=== PATIENT | male | born 1955 | race Caucasian/White ===

== ENCOUNTER 2021-07-04 17:20 | Observation (INO) | payer BC, OTHER ==
[2021-07-04] MEDS ORDERED: Morphine 4 MG/ML VIAL ONE ×2 (17:51→18:26)
[2021-07-04] MEDS ORDERED: Ondansetron PF 4 MG/2 ML Vial ONE (17:52)
[2021-07-04 17:53] LABS: #Eosinphils 0.2 10x3/uL (0.0-0.5); #Monocytes 0.7 10x3/uL (0.0-1.1); #Neutrophils 4.6 10x3/uL (1.5-8.4); %Basophils 0.4 % (0.0-2.0); %Eosinophils 1.9 % (0.0-6.0); %Lymphocytes 36.1 % (18.0-47.0); %Monocytes 7.7 % (0.0-10.0); %Neutrophils 53.7 % (40.0-75.0); Hemoglobin 14.4 g/dL (13.5-17.5); Mean Corpuscular HGB CONC 32.7 g/dL (32.0-36.0); Mean Corpuscular Hemoglobin 28.9 pg (27.0-33.0); Mean Corpuscular Volume 88.4 fl (81.2-95.1); Mean Platelet Volume 10.2 fl (7.4-10.4); Platelet Count 232 10x3/uL (150-450); RBC Distribution Width 13.3 % (11.5-14.5); Red Blood Cell (RBC) Count 4.98 10x6/uL (4.32-5.72); White Blood Cell (WBC) Count 8.5 10x3/uL (3.5-10.5)
[2021-07-04 18:08] LABS: ALT (SGPT) 21 U/L (8-55); AST (SGOT) 21 U/L (5-34); Albumin 4.6 g/dL (3.4-4.8); Alkaline Phosphatase 66 U/L (40-110); Anion Gap 16 mmol/L (10-20); BUN (Urea Nitrogen) 18 mg/dL (8.4-25.7); Bilirubin, Total 0.4 mg/dL (0.2-1.2); Calc. Creatinine Clearance 0 mL/min (70-130); Calcium 9.6 mg/dL (7.8-10.44); Carbon Dioxide 24 mmol/L (23-31); Chloride 103 mmol/L (98-107); Globulin 2.9 g/dL (2.4-3.5); Glucose 103 mg/dL (80-115); Lipase 19 U/L (8-78); Potassium 4.2 mmol/L (3.5-5.1); Protein, Total 7.5 g/dL (5.8-8.1); Sodium 139 mmol/L (136-145)
[2021-07-04 18:26] LABS: PTT 25.1 sec (22.0-33.0); Prothrombin Time 10.6 sec (9.5-12.1)
[2021-07-04 19:06] LABS: ALT (SGPT) 18 U/L (8-55); AST (SGOT) 20 U/L (5-34); Albumin 3.9 g/dL (3.4-4.8); Alkaline Phosphatase 55 U/L (40-110); Bilirubin, Direct 0.2 mg/dL (0.1-0.3); Bilirubin, Total 0.4 mg/dL (0.2-1.2); Protein, Total 6.6 g/dL (5.8-8.1)
[2021-07-04 22:03] LABS: Troponin I Less than 0.010 ng/mL (< 0.028)
[2021-07-04 22:17] VITALS: BMI 40.4
[2021-07-04] MEDS ORDERED: Ondansetron PF 4 MG/2 ML Vial IVP PRN (22:17)
[2021-07-04] MEDS ORDERED: Morphine 4 MG/ML VIAL SLOW IVP PRN (22:17)
[2021-07-04] MEDS ORDERED: Enoxaparin Sodium 40 MG/0.4 ML SYRINGE SC SCH (22:30)
[2021-07-04] MEDS ORDERED: Sodium Chloride 0.45% 1,000 ML ONE (22:34)
[2021-07-04] MEDS: Morphine 4 MG/ML VIAL SLOW IVP PRN (22:37)
[2021-07-04] MEDS: Sodium Chloride 0.45% 1,000 ML IV SCH (22:38)
[2021-07-04 23:06] LABS: Magnesium 1.7 mg/dL (1.6-2.6)
[2021-07-04] MEDS ORDERED: Gabapentin 300 MG CAP PO SCH (23:30)
[2021-07-04] MEDS ORDERED: Atorvastatin Calcium 10 MG TAB PO SCH (23:30)
[2021-07-04] MEDS: Clindamycin/D5W 600 MG in Premix Bag 1 BAG IVPB SCH (23:37)
[2021-07-05 04:14] LABS: #Eosinphils 0.1 10x3/uL (0.0-0.5); #Monocytes 0.7 10x3/uL (0.0-1.1); #Neutrophils 6.9 10x3/uL (1.5-8.4); %Basophils 0.3 % (0.0-2.0); %Lymphocytes 16.8 % (18.0-47.0); %Neutrophils 74.5 % (40.0-75.0); Hemoglobin 13.3 g/dL (13.5-17.5); Mean Corpuscular HGB CONC 32.9 g/dL (32.0-36.0); Mean Corpuscular Hemoglobin 29.4 pg (27.0-33.0); Mean Corpuscular Volume 89.2 fl (81.2-95.1); Mean Platelet Volume 9.9 fl (7.4-10.4); Platelet Count 212 10x3/uL (150-450); RBC Distribution Width 13.7 % (11.5-14.5); Red Blood Cell (RBC) Count 4.53 10x6/uL (4.32-5.72); White Blood Cell (WBC) Count 9.2 10x3/uL (3.5-10.5)
[2021-07-05 04:40] LABS: Anion Gap 16 mmol/L (10-20); BUN (Urea Nitrogen) 15 mg/dL (8.4-25.7); Calc. Creatinine Clearance 129 mL/min (70-130); Calcium 8.7 mg/dL (7.8-10.44); Carbon Dioxide 20 mmol/L (23-31); Chloride 105 mmol/L (98-107); Glucose 125 mg/dL (80-115); Sodium 136 mmol/L (136-145)
[2021-07-05 04:52] LABS: Potassium 4.6 mmol/L (3.5-5.1)
[2021-07-05] MEDS ORDERED: Promethazine HCl 12.5 MG in Sodium Chloride 0.9% 50 ML IVPB SCH (05:00)
[2021-07-05] MEDS: Morphine 4 MG/ML VIAL SLOW IVP PRN (05:21)
[2021-07-05] MEDS: Clindamycin/D5W 600 MG in Premix Bag 1 BAG IVPB SCH ×2 (06:23→13:56)
[2021-07-05] MEDS: Sodium Chloride 0.45% 1,000 ML IV SCH ×3 (06:24→22:57)
[2021-07-05] MEDS ORDERED: Bupivacaine 0.25% HCL 30 ML VIAL ONE (07:10)
[2021-07-05] MEDS ORDERED: EPINEPHrine 1 MG/ML AMP ONE (07:11)
[2021-07-05 07:19] LABS: SARS-CoV-2 NAA Rapid Test Not Detected (NotDetected)
[2021-07-05] MEDS ORDERED: Lidocaine 2% PF 5 ML VIAL ONE (10:04)
[2021-07-05] MEDS ORDERED: Lidocaine 4% PF 5 ML AMP ONE (10:04)
[2021-07-05] MEDS ORDERED: Fentanyl 250 MCG/5 ML VIAL ONE (10:04)
[2021-07-05] MEDS ORDERED: PROPOFOL 20 ML ONE (10:04)
[2021-07-05] MEDS ORDERED: Rocuronium Bromide 10 MG/ML (10ML VIAL) ONE (10:04)
[2021-07-05] MEDS ORDERED: SUGAMMADEX SODIUM 200 MG/2 ML VIAL ONE (10:07)
[2021-07-05] MEDS ORDERED: PHENYLEPHRINE-NS 100 MCG/ML 10 ML SYRINGE ONE (11:17)
[2021-07-05] MEDS ORDERED: ePHEDrine Sulfate 50 MG/10 ML VIAL ONE (11:44)
[2021-07-05] MEDS ORDERED: Acetaminophen/Codeine 30-300mg Tablet PO PRN (12:56)
[2021-07-05] MEDS ORDERED: Ketorolac Tromethamine 30 MG/ML VIAL ONE (13:00)
[2021-07-05] MEDS ORDERED: HYDROmorphone 0.5 MG/0.5 ML SYRINGE ONE (13:00)
[2021-07-05] MEDS ORDERED: Ketorolac Tromethamine 30 MG/ML VIAL IVP PRN (18:34)
[2021-07-05] MEDS: traMADol HCl 50 MG TAB PO PRN (19:36)
[2021-07-05] MEDS ORDERED: Atorvastatin Calcium 10 MG TAB PO SCH (21:00)
[2021-07-05] MEDS ORDERED: Gabapentin 300 MG CAP PO SCH (21:00)
[2021-07-05] MEDS ORDERED: Sodium Chloride 0.45% 1,000 ML ONE (22:58)
[2021-07-06] MEDS: Sodium Chloride 0.45% 1,000 ML IV SCH (07:34)
[2021-07-06] MEDS: traMADol HCl 50 MG TAB PO PRN (08:46)
[2021-07-06 12:11] VITALS: BP 121/62; TEMP 97
== END 2021-07-06 12:38 | disposition home or self-care (01) ==
LOC: CSHERS 17:20 → INTOOBSV 17:21 → CSHTELE 17:21
PROVIDERS: ADMIT Family Medicine; ATTEND Internal Medicine
PROC: 0FT44ZZ Resection of Gallbladder, Percutaneous Endoscopic Approach (ICD-10-PCS; principal; 2021-07-04)
PROC: 0WQF0ZZ Repair Abdominal Wall, Open Approach (ICD-10-PCS; 2021-07-04)
DX: K80.12 Calculus of gallbladder with acute and chronic cholecystitis without obstruction (principal); K42.9 Umbilical hernia without obstruction or gangrene; E11.9 Type 2 diabetes mellitus without complications; Z79.899 Other long term (current) drug therapy; Z90.49 Acquired absence of other specified parts of digestive tract; Z87.891 Personal history of nicotine dependence; E66.01 Morbid (severe) obesity due to excess calories; K04.7 Periapical abscess without sinus
CPT/HCPCS: 36415; 36416; 71045; 76705; 80048; 80053; 82150; 83690; 83735; 84484; 85025; 85610; 85730; 88304; 93005; 96372; 96374; 96375; 96376; G0378; J0171; J1170; J1650; J1885; J2001; J2270; J2405; J2550; J2704; J3010; J3490; S0020; U0002; U0003; U0005

== ENCOUNTER 2021-07-10 07:26 | Emergency (ER) | payer BC, OTHER ==
[2021-07-10] MEDS ORDERED: Ondansetron PF 4 MG/2 ML Vial ONE (07:41)
[2021-07-10 07:45] LABS: #Basophils 0.1 10x3/uL (0.0-0.2); #Eosinphils 0.2 10x3/uL (0.0-0.5); #Monocytes 0.8 10x3/uL (0.0-1.1); %Basophils 0.6 % (0.0-2.0); %Eosinophils 2.6 % (0.0-6.0); %Lymphocytes 40.4 % (18.0-47.0); %Monocytes 9.6 % (0.0-10.0); %Neutrophils 46.3 % (40.0-75.0); Hemoglobin 14.2 g/dL (13.5-17.5); Mean Corpuscular HGB CONC 33.7 g/dL (32.0-36.0); Mean Corpuscular Hemoglobin 29.6 pg (27.0-33.0); Mean Corpuscular Volume 87.9 fl (81.2-95.1); Platelet Count 250 10x3/uL (150-450); RBC Distribution Width 13.2 % (11.5-14.5); Red Blood Cell (RBC) Count 4.79 10x6/uL (4.32-5.72); White Blood Cell (WBC) Count 8.7 10x3/uL (3.5-10.5)
[2021-07-10 08:06] LABS: ALT (SGPT) 41 U/L (8-55); AST (SGOT) 34 U/L (5-34); Albumin 4.3 g/dL (3.4-4.8); Alkaline Phosphatase 84 U/L (40-110); Anion Gap 16 mmol/L (10-20); BUN (Urea Nitrogen) 15 mg/dL (8.4-25.7); Bilirubin, Total 0.8 mg/dL (0.2-1.2); Calc. Creatinine Clearance 0 mL/min (70-130); Calcium 9.3 mg/dL (7.8-10.44); Carbon Dioxide 25 mmol/L (23-31); Chloride 103 mmol/L (98-107); Globulin 2.7 g/dL (2.4-3.5); Glucose 114 mg/dL (80-115); Potassium 3.8 mmol/L (3.5-5.1); Sodium 140 mmol/L (136-145)
[2021-07-10 08:22] LABS: CKMB 1.9 ng/mL (0-6.6)
[2021-07-10] MEDS ORDERED: Aspirin 325 MG TAB ONE (08:33)
[2021-07-10] MEDS ORDERED: Ondansetron ODT 4 MG TAB PO PRN (09:02)
[2021-07-10] MEDS ORDERED: Senokot S 8.6-50 MG TAB PO PRN (09:02)
[2021-07-10] MEDS ORDERED: Acetaminophen 325 MG TAB PO PRN (09:02)
[2021-07-10] MEDS ORDERED: Morphine 4 MG/ML VIAL ONE (09:08)
[2021-07-10 10:44] LABS: Troponin I 0.035 ng/mL (< 0.028)
[2021-07-11] MEDS ORDERED: Enoxaparin Sodium 40 MG/0.4 ML SYRINGE SC SCH (09:00)
== END 2021-07-10 11:27 | disposition short-term general hospital (02) ==
LOC: CSHERS 07:26
DX: R07.89 Other chest pain (principal); R55 Syncope and collapse; E11.40 Type 2 diabetes mellitus with diabetic neuropathy, unspecified; E78.5 Hyperlipidemia, unspecified; K21.9 Gastro-esophageal reflux disease without esophagitis; Z79.899 Other long term (current) drug therapy; Z79.84 Long term (current) use of oral hypoglycemic drugs
CPT/HCPCS: 36415; 71045; 71275; 74174; 80053; 82553; 83880; 84484; 85025; 93005; 96374; J2270; J2405

== ENCOUNTER 2022-11-29 13:32 | Outpatient (CLI) | payer OTHER | END 2022-11-29 13:33 | disposition home or self-care (01) | LOC: CSHMRI 13:32 | PROVIDERS: ATTEND Orthopaedic Surgery | DX: M75.102 Unspecified rotator cuff tear or rupture of left shoulder, not specified as traumatic (principal); M25.812 Other specified joint disorders, left shoulder ==

== ENCOUNTER 2023-06-21 09:55 | Outpatient (CLI) | payer OTHER | END 2023-06-21 09:56 | disposition home or self-care (01) | LOC: CSHMRI 09:55 | PROVIDERS: ATTEND Neurological Surgery | DX: M48.062 Spinal stenosis, lumbar region with neurogenic claudication (principal); M47.816 Spondylosis without myelopathy or radiculopathy, lumbar region | CPT/HCPCS: 72148 ==

== ENCOUNTER 2024-08-10 23:45 | Observation (INO) | payer OTHER, SELFPAY ==
[2024-08-10] MEDS ORDERED: Ondansetron PF 4 MG/2 ML Vial ONE (23:52)
[2024-08-11 00:04] LABS: #Basophils 0.03 10x3/uL (0.0-0.2); #Eosinophils 0.14 10x3/uL (0.0-0.5); #Monocytes 0.96 10x3/uL (0.0-1.1); #Neutrophils 4.51 10x3/uL (1.5-8.4); %Basophils 0.3 % (0.0-2.0); %Eosinophils 1.6 % (0.0-6.0); %Lymphocytes 35.9 % (18.0-47.0); %Monocytes 10.9 % (0.0-10.0); Hemoglobin 15.1 g/dL (13.5-17.5); Mean Corpuscular HGB CONC 33.6 g/dL (32.0-36.0); Mean Corpuscular Hemoglobin 29.4 pg (27.0-33.0); Mean Corpuscular Volume 87.5 fL (81.2-95.1); Mean Platelet Volume 9.6 fL (7.4-10.4); Platelet Count 227 10x3/uL (150-450); RBC Distribution Width 13.2 % (11.5-14.5); Red Blood Cell (RBC) Count 5.14 10x6/uL (4.32-5.72); White Blood Cell (WBC) Count 8.8 10x3/uL (3.5-10.5)
[2024-08-11 00:19] LABS: Troponin I Less than 0.010 ng/mL (< 0.028)
[2024-08-11 00:20] LABS: ALT (SGPT) 47 U/L (8-55); AST (SGOT) 39 U/L (5-34); Albumin 3.9 g/dL (3.4-4.8); Alkaline Phosphatase 90 U/L (40-110); Anion Gap 21 mmol/L (10-20); BUN (Urea Nitrogen) 15 mg/dL (8.4-25.7); Bilirubin, Total 0.9 mg/dL (0.2-1.2); Calc. Creatinine Clearance 0 mL/min (70-130); Calcium 9.4 mg/dL (7.8-10.44); Carbon Dioxide 18 mmol/L (23-31); Chloride 103 mmol/L (98-107); Estimated GFR 82; Globulin 3.1 g/dL (2.4-3.5); Glucose 139 mg/dL (80-115); Potassium 3.8 mmol/L (3.5-5.1); Sodium 138 mmol/L (136-145)
[2024-08-11] MEDS ORDERED: Meclizine HCl 25 MG TAB ONE (01:09)
[2024-08-11] MEDS ORDERED: Acetaminophen 325 MG TAB PO PRN (01:45)
[2024-08-11] MEDS ORDERED: Ondansetron PF 4 MG/2 ML Vial IVP PRN (01:45)
[2024-08-11] MEDS ORDERED: Labetalol HCl 100 MG/20 ML VIAL SLOW IVP PRN (01:46)
[2024-08-11] MEDS ORDERED: hydrALAZINE 20 MG/ML VIAL SLOW IVP PRN (01:46)
[2024-08-11] MEDS ORDERED: Sodium Chloride 0.9% 500 ML IV SCH (02:00)
[2024-08-11 03:37] VITALS: BMI 41.0
[2024-08-11] MEDS: Aspirin 81 mg Enteric Coated Tablet PO SCH (03:40)
[2024-08-11 04:01] LABS: #Basophils 0.02 10x3/uL (0.0-0.2); #Eosinophils 0.04 10x3/uL (0.0-0.5); #Monocytes 0.77 10x3/uL (0.0-1.1); #Neutrophils 6.75 10x3/uL (1.5-8.4); %Basophils 0.2 % (0.0-2.0); %Eosinophils 0.4 % (0.0-6.0); %Lymphocytes 16.2 % (18.0-47.0); %Monocytes 8.5 % (0.0-10.0); %Neutrophils 74.2 % (40.0-75.0); Hematocrit 44.6 % (38.8-50.0); Hemoglobin 14.6 g/dL (13.5-17.5); Mean Corpuscular HGB CONC 32.7 g/dL (32.0-36.0); Mean Corpuscular Hemoglobin 29.6 pg (27.0-33.0); Mean Corpuscular Volume 90.5 fL (81.2-95.1); Mean Platelet Volume 9.8 fL (7.4-10.4); Platelet Count 198 10x3/uL (150-450); RBC Distribution Width 13.2 % (11.5-14.5); Red Blood Cell (RBC) Count 4.93 10x6/uL (4.32-5.72); White Blood Cell (WBC) Count 9.1 10x3/uL (3.5-10.5)
[2024-08-11 04:11] LABS: Anion Gap 16 mmol/L (10-20); BUN (Urea Nitrogen) 15 mg/dL (8.4-25.7); Calc. Creatinine Clearance 136 mL/min (70-130); Calcium 9.3 mg/dL (7.8-10.44); Carbon Dioxide 23 mmol/L (23-31); Cardiac Risk 4.9 (Less than 4.5); Chloride 102 mmol/L (98-107); Cholesterol 206 mg/dl (< 200 Desired); Estimated GFR 92; Glucose 112 mg/dL (80-115); HDL Cholesterol 42 mg/dL (>60 Neg Risk); LDL Cholesterol, Calculated 125 mg/dL; Potassium 3.9 mmol/L (3.5-5.1); Sodium 137 mmol/L (136-145); Triglycerides 193 mg/dL (Less than 150)
[2024-08-11] MEDS ORDERED: Dextrose 50% Abboject 50 ML SYRINGE SLOW IVP PRN (06:32)
[2024-08-11] MEDS ORDERED: Insulin Lispro 100 UNIT/ML 10 ML VIAL SC PRN ×2 (06:32)
[2024-08-11] MEDS ORDERED: Dextrose 5% in Water 1,000 ML IV PRN (06:32)
[2024-08-11] MEDS ORDERED: Glucagon 1 MG/ML KIT IM PRN (06:32)
[2024-08-11] MEDS: DULoxetine 30 MG CAP PO SCH (09:01)
[2024-08-11] MEDS: Meclizine HCl 25 MG TAB PO SCH (09:01)
[2024-08-11] MEDS: Empagliflozin 10 MG TAB PO SCH (09:01)
[2024-08-11] MEDS: Sodium Chloride 0.9% 1,000 ML IV SCH (10:23)
[2024-08-11 12:53] LABS: Hemoglobin A1c 6.1 % (4.0-6.0)
[2024-08-11 13:15] VITALS: BP 120/66; TEMP 97.9
[2024-08-11] MEDS ORDERED: Atorvastatin Calcium 20 MG TAB PO SCH (21:00)
== END 2024-08-11 13:59 | disposition home or self-care (01) ==
LOC: CSHERS 23:45 → CSHTELE 08-11 01:47
PROVIDERS: ADMIT Internal Medicine; ATTEND Internal Medicine
PROC: B246ZZZ Ultrasonography of Right and Left Heart (ICD-10-PCS; principal; 2024-08-11)
DX: R42 Dizziness and giddiness (principal); R11.2 Nausea with vomiting, unspecified; H53.8 Other visual disturbances; Z88.0 Allergy status to penicillin; E78.5 Hyperlipidemia, unspecified; K21.9 Gastro-esophageal reflux disease without esophagitis; E11.42 Type 2 diabetes mellitus with diabetic polyneuropathy; E66.9 Obesity, unspecified; G47.33 Obstructive sleep apnea (adult) (pediatric); Z90.89 Acquired absence of other organs; Z90.49 Acquired absence of other specified parts of digestive tract; Z79.899 Other long term (current) drug therapy
CPT/HCPCS: 36415; 36416; 70450; 70551; 80048; 80053; 80061; 83036; 83735; 84443; 84484; 85025; 93005; 93010; 93306; 94760; 96374; G0378; J2405; J7030